=== PATIENT | male | born 1950 | race Caucasian/White ===

== ENCOUNTER 2018-02-01 05:59 | Day surgery (SDC) | payer MEDICARE, BC ==
[~2018-02-01] VITALS: Ht 177.8 cm; Wt 102.6 kg
[2018-02-01] MEDS ORDERED: IOHEXOL 350 MG/ML 50 ML BTL (for Cath Lab) OTHER ONE (06:00)
[2018-02-01] MEDS ORDERED: NS 1000P @30 MLS/HR (KVO) IV SCH (06:45)
[2018-02-01 06:53] VITALS: BP 132/74; PULSE 63; RESP 18; TEMP 97.9; O2SAT 98
[2018-02-01] MEDS ORDERED: ATOR10TA15 PO (07:07)
[2018-02-01] MEDS ORDERED: ASPI81TA23 PO (07:07)
[2018-02-01] MEDS ORDERED: DICL75TA PO (07:07)
[2018-02-01] MEDS ORDERED: PLAV75TA29 PO (07:07)
[2018-02-01] MEDS ORDERED: CHOL400D2 PO (07:07)
[2018-02-01] MEDS ORDERED: LOSA100T PO (07:07)
[2018-02-01] MEDS ORDERED: PAXI30TA7 PO (07:07)
[2018-02-01] MEDS ORDERED: NITR0.4S SL (07:07)
[2018-02-01] MEDS ORDERED: LEVO50TA53 PO (07:07)
[2018-02-01] MEDS ORDERED: METO25TA3 PO (07:07)
[2018-02-01] MEDS ORDERED: PANT20TA2 PO (07:07)
[2018-02-01] MEDS ORDERED: CHOL10008 PO (07:07)
[2018-02-01] MEDS ORDERED: AMLO5TAB2 PO (07:07)
[2018-02-01] MEDS ORDERED: FENO160T PO (07:07)
[2018-02-01 07:34] LABS: BICARBONATE 26.2 MEQ/L (21.0-32.0); CALCIUM 8.7 MG/DL (8.5-10.1); CREATININE 1.18 MG/DL (0.60-1.30)
[2018-02-01] MEDS ORDERED: MIDAZOLAM HCL 2 MG/2 ML VIAL ONE (08:07)
[2018-02-01] MEDS ORDERED: HEPARIN-NS/PF FLUSH BAG 2,000 ML IV FLUSH ONE (08:07)
--- NOTE | 2018-02-01 08:59 | CATHPROC ---
[facility] HIS Report Study Information Study Number Admission Scheduled Start Study Start [id number] Feb 01 2018 5:59AM 02/01/2018 Feb 01 2018 8:10AM Paul [facility]s Service Cardiac Catheterization Admit Source Facility Department Other [facility] - Blasting [facility] [employer]er Physician and Clinical Staff Initial John Michael Final Inspector Movement Assembly Rigoberto Wilson,REBECA Final Inspector Movement Assembly Giovani Roblero,REBECA Other cathlab, cathlab Other Rigoberto Sorto RN Recorder Eva Ross,TRACK COACH TECH2 Scrub Paris Orta,(R) Procedures Performed Procedure Location (Site) Vessel Name Coronary Angiograms LCA Left Coronary Coronary Angiograms RCA Right Coronary L Heart Cath Equipment Time Skatesman Description Size Mfg Part Number Used/Scraped TRANSDUCER, TRUWAVE [id number] 08:18 WINTER NOLEN * Used W/STOCKCOCK *[id number] *[id number] *[id number] 08:18 [employer] PACK, CCL CUSTOM * Used *[id number] 08:18 [employer] PACER PEN, SKIN DUAL W/ RULER * Used *[id number] 08:18 [employer] MEDICAL SHEATH, FR6.5 PRELUDE 11CM FR 6.5 038ACT Used *[id number] 08:18 [employer] MEDICAL WIRE, 3MMJ .035 180CM 180CM Used *[id number] 08:18 NAMIC MANIFOLD, 4 PORT * Used *[id number] 08:18 [employer]COMED OMNIPAQUE, 350 MG, 100ML 100ML [id number] Used [id number] 08:18 [employer] BLANKET,WARM AIR CCL * Used *[id number] History: Allergies Allergy Reaction bee venom protein (honey bee) History: Risk Factors Family History of Hypertension Dyslipidemia Previous [place] Previous Heart Failure Premature CAD Yes Yes No No No Prior Valve Prior PCI Prior PCIDate Prior CABG Surgery No Yes 11/09/2016 No Cerebrovascular Peripheral Artery Chronic Lung On Dialysis Diabetes Disease Disease Disease No No No No No History: Stress Tests Stress or Imaging Studies Performed Yes Standard Exercise Stress Test No Stress Echo No Stress Test SPECT No Stress Test CMR Stress Test CMR Result Stress Test CMR Ischemia Risk/Extent Yes Positive Low Cardiac CTA Coronary Calcium Score No No History: Other Current Smoker Method Quit Packs a Day Years Used Pack Years No Cigarettes 25 Years Ago 1 30 30 Labs Hgb (g/dl) Hct (%) WBC (l/cumm) Platelets (thousands) 11.60-17.00 35.00-51.00 4.00-11.00 150.00-450.00 15.6 4.7 9.1 255 BUN (mg/dl) 7.00-18.00 22 Na (meq/l) K (meq/l) 136.00-145.00 3.50-5.10 142 4 INR (PTT:PT) 0.90-1.10 1 Medication Medication Total Dose (Bolus/Oral) Medication Total Dosage/Unit 1% XYLOCAINE 15 mL VERSED 2 mg Medications (Bolus/Oral) Medication Time Given Dosage/Unit Administered By Reason VERSED 02/01/2018 8:33:58 AM 2 mg Rigoberto Sorto 2 mg VERSED given in lab by Rigoberto Sorto, RN in Right Hand via Peripheral IV. Ordered by Roosevelt Estrada. 1% XYLOCAINE 02/01/2018 8:35:22 AM 15 mL John Estrada 15 mL 1% XYLOCAINE given in lab by John Estrada in Right Groin via Subcutaneous. Ordered by John Mccurdy ms. Medication (Drip) Medication Time Given Dosage/Unit Concentration/Unit Diluent (ml) Solutio n IV Solutions 02/01/2018 8:13:07 AM 0 mL (IV) 500 NaCl .9 IV Solutions given in lab by Giovani Roblero, REBECA in Right Hand via Peripheral IV. Pump/Drip Flow = 20 ml/hr using NaCl .9. Initial Case Assessment Cardiovascular HR NIBP 61 130/77 Edema Present Skin color Skin None Normal Warm Dry Circulatory - Right Pulses Dorsalis Pedis Femoral 2 3 Scale (0,1,2,3,4,d) Circulatory - Left Pulses Dorsalis Pedis Femoral 2 3 Scale (0,1,2,3,4,d) Neurological State Oriented to time-place- Alert Moves all extremities person Respiration - General Respiration Rate SpO2 (%) (B/min) 14 97 Final Case Assessment Cardiovascular HR NIBP 64 119/74 Edema Present Skin color Skin None Normal Warm Dry Circulatory - Right Pulses Dorsalis Pedis Femoral 2 3 Scale (0,1,2,3,4,d) Circulatory - Left Pulses Dorsalis Pedis Femoral 2 3 Scale (0,1,2,3,4,d) Neurological State Oriented to time-place- Alert Moves all extremities person Respiration - General Respiration Rate SpO2 (%) (B/min) 18 92 Chronological Log Time Study Chronological Log 8:09:43 Patient arrived via Bed. 8:09:44 Patient Name, D.O.B, / Armband Verified By R.N. 8:09:45 Consent signed by the physician and the patient and verified by the Blasting Cap [employer]er staff. 8:09:46 Pre-op and post- op instructions given; patient acknowledges understanding of instructions. Vitals capture started with the following parameters, Patient=Adult, Interval=5 min, Initial Pr gxgmcz=123 mmHg, 8:11:24 Deflation Rate=5 mmHg, Cuff placed on Right Arm 8:12:39 HR=61 bpm, QRRU=408/77 mmhg, SpO2=97.0 %, Resp=14 B/min, Pain=0, Kadie=10, Garcia=2 8:13:00 Patient has been NPO for More than 6Hrs. 8:13:01 Skin Breakdown- 8:13:02 Patient Warmer Placed on the Table. 8:13:03 Sharlene Prominences Protected 8:13:06 A # 20 IV was noted in the Hand (right). Grade = 0 8:13:07 IV Solutions given in lab by Giovani Roblero RN in Right Hand via Peripheral IV. Pump/Drip Flow = 20 ml/hr using NaCl .9. 8:13:08 History and physical on the chart or being dictated. Assessment: Initial Case, HR=61 BPM, VSMZ=691/77 mmhg, Edema=None, Color=Normal, Skin = Warm, D ry Right Pulses: Wayne Ped=2, Femoral=3 8:13:09 Left Pulses: Wayne Ped=2, Femoral=3 Neurological: State=Alert, Ox3, [place] Respiration: Resp=14 B/min, SpO2=97 % 8:13:18 Reference ECG taken 8:14:33 HR=64 bpm, WJAM=354/71 mmhg, SpO2=98.0 %, Resp=14 B/min, Pain=0, Kadie=10, Garcia=2 8:16:02 HR=64 bpm, DCRB=761/73 mmhg, SpO2=97.0 %, Resp=9 B/min, Pain=0, Kadie=10, Garcia=2 8:17:58 HR=63 bpm, MHVH=191/81 mmhg, PhK9=786.0 %, Resp=15 B/min, Pain=0, Kadie=10, Garcia=2 8:19:58 Vitals capture stopped. 8:20:03 HR=62 bpm, CBZS=594/77 mmhg, SpO2=99.0 %, Resp=15 B/min, Pain=0, Kadie=10, Garcia=2 Vitals capture started with the following parameters, Patient=Adult, Interval=5 min, Initial Pre sgxjh=099 mmHg, 8:20:21 Deflation Rate=5 mmHg, Cuff placed on Right Arm 8:21:01 HR=62 bpm, FYCS=570/78 mmhg, SpO2=98.0 %, Resp=10 B/min, Pain=0, Kadie=10, Garcia=2 8:23:22 Bilateral groins prepped with 2% chlorhexidine, and draped after a 3 minute waiting time. 8:25:58 HR=57 bpm, VDSQ=186/76 mmhg, IwH0=511.0 %, Resp=12 B/min, Pain=0, Kadie=10, Garcia=2 8:30:25 Pressure channel 1 zero failed. 8:30:38 Pressure channel 1 zeroed. 8:30:59 HR=60 bpm, AYIU=776/76 mmhg, SpO2=97.0 %, Resp=12 B/min, Pain=0, Kadie=10, Gracia=2 Time Out. Correct patient, correct procedure, correct physician, power injector not loaded with contrast with surgical 8:32:44 team present. Time Out Concurred by MD and individual staff in procedure. 8:33:53 Case Start 8:33:58 2 mg VERSED given in lab by Rigoberto Sorto, RN in Right Hand via Peripheral IV. Ordered by John Locke. 8:35:22 15 mL 1% XYLOCAINE given in lab by John Estrada in Right Groin via Subcutaneous. Ordered by John Estrada. 8:36:00 HR=60 bpm, CUDA=379/67 mmhg, SpO2=99.0 %, Resp=16 B/min, Pain=0, Kadie=10, Garcia=2 8:37:55 Access site was Right Femoral Artery. 8:38:17 A SHEATH, FR6.5 PRELUDE 11CM FR 6.5 was advanced into the Fem Art (right) using the Modified Seldinger technique. A JL 4.0 INFINITI CATHETER FR 6 was advanced over a wire. OMNIPAQUE, 350 MG, 100ML 100ML was use d for 8:38:54 injections. Recorded Pressure: Ao, HR=63, Condition=Condition 1 8:39:54 (Aorta) Ao 118/68/88 8:40:08 The LCA was injected and visualized at various angles. OMNIPAQUE, 350 MG, 100ML 100ML used. 8:40:57 HR=66 bpm, PKGA=869/73 mmhg, SpO2=93.0 %, Resp=16 B/min, Pain=0, Kadie=10, Gracia=2 8:41:47 Catheter was removed A JR 4.0 INFINITI CATHETER FR 6 was advanced over a wire. OMNIPAQUE, 350 MG, 100ML 100ML was use d for 8:41:51 injections. 8:43:02 The RCA was injected and visualized at various angles. OMNIPAQUE, 350 MG, 100ML 100ML used. 8:44:48 Catheter was removed 8:45:02 Case End 8:45:07 Catheter(s) removed without difficulty 8:45:08 Sheath(s) left in place, will be removed in Holding Area 8:45:12 Sterile dressing applied to site 8:45:13 No case complications noted. 8:45:16 Cine recording checked. 8:45:20 Bedside Report will be given. 8:45:24 A Left Heart Cath was performed. 8:45:58 HR=65 bpm, FKRK=986/71 mmhg, SpO2=93.0 %, Resp=15 B/min, Pain=0, Kadie=10, Garcia=2 8:50:59 HR=64 bpm, ZQET=344/74 mmhg, SpO2=92.0 %, Resp=18 B/min, Pain=0, Kadie=10, Garcia=2 Assessment: Final Case, HR=64 BPM, BBCB=061/74 mmhg, Edema=None, Color=Normal, Skin = Warm, Dr y Right Pulses: Wayne Ped=2, Femoral=3 8:51:08 Left Pulses: Wayne Ped=2, Femoral=3 Neurological: State=Alert, Ox3, [place] Respiration: Resp=18 B/min, SpO2=92 % 8:54:27 Patient moved to stretcher 8:54:31 Clinical correlaton risk stratification. 8:54:57 Vitals capture stopped. End Study - Contrast Media Used In Study Contrast Total Opened (mL) Total Used (mL) Total Wasted (mL) Omnipaque 50 50 0 End Study - Radiation Exposure Fluoro Time (minutes) 7.5 End Study - Patient Disposition Complications Transferred To Telemetry Bed
[2018-02-01] MEDS ORDERED: LIDOCAINE HCL 1% 50 ML VIAL INFIL PRN (09:00)
[2018-02-01] MEDS ORDERED: LORazepam 2 MG/ML VIAL IV PUSH PRN (09:00)
[2018-02-01] MEDS ORDERED: ONDANSETRON HCL 4 MG/2 ML VIAL IV PUSH PRN (09:00)
[2018-02-01] MEDS ORDERED: MISC INFORMATION XX ONE (09:00)
[2018-02-01] MEDS ORDERED: ATROPINE SULFATE 1 MG/ML VIAL IV PUSH PRN (09:00)
[2018-02-01] MEDS ORDERED: SODIUM CHLOR 0.9% 250 ML INJ 250 ML IV PRN (10:00)
[2018-02-01] MEDS ORDERED: SODIUM CHLOR 0.9% 1000 ML INJ 1,000 ML IV SCH (10:00)
[2018-02-01] MEDS ORDERED: BACITRACIN OINT 0.9 GM PKT TOP ONE (10:00)
== END 2018-02-01 13:42 | disposition home or self-care (01) ==
LOC: HDOC 05:59 → HDIC 05:59 → HDOC 13:42
PROVIDERS: ATTEND Internal Medicine Cardiovascular Disease
DX: I25.110 Atherosclerotic heart disease of native coronary artery with unstable angina pectoris (principal); I48.91 Unspecified atrial fibrillation; I10 Essential (primary) hypertension; K21.9 Gastro-esophageal reflux disease without esophagitis; K44.9 Diaphragmatic hernia without obstruction or gangrene; E03.9 Hypothyroidism, unspecified; G47.00 Insomnia, unspecified; M47.816 Spondylosis without myelopathy or radiculopathy, lumbar region; E78.5 Hyperlipidemia, unspecified; M72.2 Plantar fascial fibromatosis; G25.81 Restless legs syndrome; K22.2 Esophageal obstruction; M50.30 Other cervical disc degeneration, unspecified cervical region; M19.90 Unspecified osteoarthritis, unspecified site; E66.9 Obesity, unspecified; Z87.891 Personal history of nicotine dependence
CPT/HCPCS: 80048; 93454; 99152; C1893; J1644; J2250; Q9967